=== PATIENT | male | born 1965 ===

== ENCOUNTER 2018-07-05 10:27 | Outpatient (CLI) | payer OTHER ==
[~2018-07-05 10:27] MED LIST: DIOVAN40 MG PO
== END 2018-07-05 10:38 | disposition home or self-care (01) ==
LOC: SONOGRAMA 10:27
DX: N40.0 Benign prostatic hyperplasia without lower urinary tract symptoms (principal); R97.20 Elevated prostate specific antigen [PSA]

== ENCOUNTER 2018-07-10 18:41 | Outpatient (CLI) | payer OTHER | END 2018-07-10 19:06 | disposition home or self-care (01) | LOC: LAB 18:41 | DX: R97.20 Elevated prostate specific antigen [PSA] (principal) ==

== ENCOUNTER 2018-07-31 08:01 | Outpatient (CLI) | payer OTHER | END 2018-07-31 08:18 | disposition home or self-care (01) | LOC: SONOGRAMA 08:01 | DX: R97.20 Elevated prostate specific antigen [PSA] (principal) ==

== ENCOUNTER 2018-08-21 07:54 | Outpatient (CLI) | payer OTHER | END 2018-08-21 08:12 | disposition home or self-care (01) | LOC: TOM 07:54 → RAD 07:54 | DX: N40.0 Benign prostatic hyperplasia without lower urinary tract symptoms (principal); C61 Malignant neoplasm of prostate; R31.9 Hematuria, unspecified ==

== ENCOUNTER 2018-08-23 07:39 | Outpatient (CLI) | payer OTHER | END 2018-08-23 07:48 | disposition home or self-care (01) | LOC: NUCLEAR 07:39 | DX: I25.10 Atherosclerotic heart disease of native coronary artery without angina pectoris (principal) ==

== ENCOUNTER 2018-09-18 08:30 | Inpatient (IN) | payer OTHER ==
[~2018-09-18] VITALS: Ht 177.8 cm; Wt 116.6 kg
[2018-09-18] MEDS ORDERED: LUMIGAN2.5 M1 (10:32)
[2018-09-18] MEDS ORDERED: LIPITOR40 MG (10:32)
[2018-09-18] MEDS ORDERED: SIMBRINZA 1%-0.28 ML (10:32)
== END 2018-09-25 12:29 | disposition home or self-care (01) | DRG 708 ==
LOC: SURG 09-23 06:00 → O/R 09-23 06:00 → SURH 09-23 08:30 → SURG 09-23 15:09
PROVIDERS: Urology
PROC: 07TC0ZZ Resection of Pelvis Lymphatic, Open Approach (ICD-10-PCS; 2018-09-23)
PROC: 0VT00ZZ Resection of Prostate, Open Approach (ICD-10-PCS; principal; 2018-09-23 09:15)
DX: C61 Malignant neoplasm of prostate (principal); I10 Essential (primary) hypertension

== ENCOUNTER 2018-10-24 10:12 | Outpatient (CLI) | payer OTHER ==
[~2018-10-24 10:12] MED LIST changes: +LIPITOR40 MG; +LUMIGAN2.5 M1; +SIMBRINZA 1%-0.28 ML
== END 2018-10-24 10:14 | disposition home or self-care (01) ==
LOC: SONOGRAMA 10:12
DX: N40.0 Benign prostatic hyperplasia without lower urinary tract symptoms (principal); R31.9 Hematuria, unspecified

== ENCOUNTER 2019-11-12 09:25 | Emergency (ER) | payer OTHER ==
[~2019-11-12] VITALS: Ht 177.8 cm; Wt 113.4 kg
[2019-11-12] MEDS ORDERED: AMLODIPINE-OLM1 EAC2 (09:38)
[2019-11-12] MEDS ORDERED: MICROZIDE12.5 MG (09:38)
[2019-11-12] MEDS ORDERED: DOXAZOSIN MESYLA2 MG (09:39)
[2019-11-12] MEDS ORDERED: ZITHROMAX500 MG PO (11:39)
== END 2019-11-12 11:37 | disposition home or self-care (01) ==
LOC: ER 09:25
DX: B34.9 Viral infection, unspecified (principal); B96.0 Mycoplasma pneumoniae [M. pneumoniae] as the cause of diseases classified elsewhere